=== PATIENT | male | born 1955 | race Caucasian/White ===

== ENCOUNTER → 2023-02-27 09:35 | Outpatient (CLI) | payer MEDICARE, SELFPAY ==
--- NOTE | ~2023-02-27 | CT_ITS ---
CT Scan of the Chest without Contrast: Clinical Indication: Lung cancer screening, personal history of nicotine dependence Technique: Contiguous sections were acquired throughout the chest without intravenous contrast. Dose reduction technique was used on this scan by utilizing automated exposure control and iterative recon struction technique. The dose-length product (DLP) was 248.68 mGy-cm. Findings: There is no evidence of any significant mediastinal, hilar or axillary lymphadenopathy. The mediastin al soft tissues appear normal. There is no evidence of pleural or pericardial effusion. The lungs are clear. No pulmonary nodules or infiltrates are noted. Images through the upper abdomen reveal no abnormalities. Impression: Lung RADS 1: Negative. 12 month follow-up screening CT advised. Reviewed, dictated and finalized at location . Impression: Lung RADS 1: Negative. 12 month follow-up screening CT advised.
--- NOTE | ~2023-02-27 | US_ITS ---
EXAMINATION: US aorta [facility] DATE: 02/27/2023 09:52 INDICATION: Essential hypertension TECHNIQUE: Grayscale, color Doppler, and pulsed Doppler images of the aorta and common iliac arteries were obtained. COMPARISON: None. FINDINGS: The proximal aorta measures 2.1 cm. The mid aorta measures 2.2 cm. The distal aorta measures 1.8 cm. The right common iliac artery measures 1.3 cm. The left common iliac artery measures 1.1 cm. IMPRESSION: 1. Normal caliber abdominal aorta. Reviewed, dictated and finalized at location L.
== END ==
PROVIDERS: PCP Pediatrics; Visit Provider Nurse Practitioner Family
DX: Z12.2 Encounter for screening for malignant neoplasm of respiratory organs (principal); Z87.891 Personal history of nicotine dependence
CPT/HCPCS: 71271; 76706

== ENCOUNTER 2023-03-28 10:34 | Outpatient (CLI) | payer MEDICARE, SELFPAY ==
--- NOTE | ~2023-03-28 | CT_ITS ---
EXAMINATION: CT LE LT wo con DATE: 03/28/2023 11:34 INDICATION: Left knee primary osteoarthritis. TECHNIQUE: Computed tomography (CT) of the left lower limb was performed without intravenous contrast . Automated exposure control and iterative reconstruction technique were employed. The dose-length pr oduct was 2634.84 mGy-cm. COMPARISON: Left knee radiographs 03/20/2023 FINDINGS: Bone alignment is normal. No fracture. There is severe left hip osteoarthritis with a loose body. The knee demonstrates severe osteoarthritis of medial compartment and moderate osteoarthritis of lateral and patellofemoral compartments. There is a moderate-sized knee joint effusion. There is s evere osteoarthritis of proximal tibiofibular joint. There is moderate Achilles tendinopathy. IMPRESSION: 1. Severe left knee osteoarthritis. 2. Moderate-sized left knee joint effusion. 3. Severe left hip osteoarthritis with loose body. 4. Moderate left Achilles tendinopathy. Reviewed, dictated and finalized at location A.
== END 2023-03-28 10:35 | disposition home or self-care (01) ==
PROVIDERS: PCP Pediatrics; Visit Provider Orthopaedic Surgery
DX: M17.12 Unilateral primary osteoarthritis, left knee (principal); M25.462 Effusion, left knee; M16.12 Unilateral primary osteoarthritis, left hip
CPT/HCPCS: 73700

== ENCOUNTER 2023-05-13 10:26 | Outpatient (CLI) | payer MEDICARE, SELFPAY ==
--- NOTE | 2023-05-13 11:11 | ECG_ITS ---
Measurements Intervals [place] Rate: 65 P: 32 UT: 178 QRS: 1 QRSD: 116 T: 25 QT: 388 QTc: 405 Interpretive Statements SINUS RHYTHM INCOMPLETE RIGHT BUNDLE BRANCH BLOCK [90+ ms QRS DURATION, TERMINAL R IN V1/V2, 40+ ms S IN I/aVL/V4/V5/V6] NONSPECIFIC T-WAVE ABNORMALITY COMPARED TO ECG 05/05/2019 14:02:07 T-WAVE ABNORMALITY NOW PRESENT Electronically Signed On 05-13-2023 19:57:07 CDT by Aide Quiroz M.D.
[2023-05-13 11:27] LABS: Hematocrit 51.3 % (42.0-52.0); Hemoglobin 16.5 g/dL (14.0-18.0)
[2023-05-13 11:46] LABS: Albumin Level 4.8 g/dL (3.5-5.1); Estimated Glomerular Filt Rate 47; Glucose 117 mg/dL (65-110)
== END 2023-05-13 10:27 | disposition home or self-care (01) ==
LOC: ANHLAB 10:29
PROVIDERS: PCP Pediatrics; Visit Provider Orthopaedic Surgery
DX: M17.12 Unilateral primary osteoarthritis, left knee (principal); I10 Essential (primary) hypertension; E11.9 Type 2 diabetes mellitus without complications
CPT/HCPCS: 36415; 82040; 82565; 82947; 83036; 85014; 85018; 93005

== ENCOUNTER 2023-07-18 07:48 | Outpatient (CLI) | payer MEDICARE, SELFPAY ==
[2023-07-18 08:57] LABS: Basophils Percent Auto 0.4 % (0.2-1.2); Eosinophils Absolute Auto 0.2 K/mm3 (0-0.3); Eosinophils Percent Auto 2.7 % (0-4.4); Hematocrit 51.7 % (42.0-52.0); Hemoglobin 16.7 g/dL (14.0-18.0); Immature Granulocyte Absolute 0.02 K/mm3 (0.00-0.031); Immature Granulocyte Percent A 0.4 % (0-0.5); Lymphocytes Absolute Auto 1.56 K/mm3 (0.9-3.2); Lymphocytes Percent Auto 28.4 % (18.3-44.2); Mean Corpuscular HGB Conc 32.3 g/dl (32-36); Mean Corpuscular Hemoglobin 28.6 pg (26-34); Mean Corpuscular Volume 88.5 fl (80-100); Mean Platelet Volume 9.5 fl (7.4-10.4); Monocytes Absolute Auto 0.5 K/mm3 (0.1-0.6); Monocytes Percent Auto 8.5 % (2.6-8.5); Neutrophils Absolute Auto 3.3 K/mm3 (1.3-6.7); Neutrophils Percent Auto 59.6 % (45.5-73.1); Platelet Count Result 233 k/mm3 (150-375); Red Blood Count 5.84 M/mm3 (4.6-6.20); White Blood Count 5.5 K/mm3 (4.5-10.0)
[2023-07-18 09:04] LABS: Albumin Level 4.7 g/dL (3.5-5.1)
[2023-07-18 09:09] LABS: Anion Gap 10 mmol/L (8-16); Blood Urea Nitrogen 22 mg/dL (9-20); Calcium 9.7 mg/dL (8.4-10.2); Carbon Dioxide 28 mmol/L (22-30); Chloride 102 mmol/L (98-107); Estimated Glomerular Filt Rate > 60; Glucose 107 mg/dL (65-110); Potassium 5.2 mmol/L (3.4-5.0); Sodium 140 mmol/L (137-145)
[2023-07-18 10:53] LABS: Urine Cotinine NEGATIVE
== END 2023-07-18 07:49 | disposition home or self-care (01) ==
LOC: ANHSURGERY 07:51
PROVIDERS: Anesthesiology; PCP Pediatrics; Visit Provider Orthopaedic Surgery
DX: Z01.818 Encounter for other preprocedural examination (principal); M17.12 Unilateral primary osteoarthritis, left knee; E11.9 Type 2 diabetes mellitus without complications
CPT/HCPCS: 36415; 80048; 80307; 82040; 85025; 87081

== ENCOUNTER 2023-08-05 00:44 | Day surgery (SDC) | payer MEDICARE, SELFPAY ==
[2023-07-18 07:55] VITALS: BMI 36.6
--- NOTE | 2023-07-18 08:20 | PC.NURSE ---
Report to the Outpatient Waiting Room, entrance under the green pavilion located off [facility], at time _0830 on date08/05/23 . Planned Procedure Time: _1030 . Time changes happen often and if your time is changed the preop area will call you the afternoon before. - You and your visitor will be asked to self-screen and do not enter if you have any COVID symptoms. - A mask is optional within the hospital at this time. Patients may have clear liquids (water, carbonated beverages, clear teas, apple juice) until 3 hours prior to surgery ( 7:30 AM)with a maximum of 20 ounces. - No food from midnight until time of surgery - Take the following medications with a SIP of water the morning of surgery: ___NONE DO NOT STOP ANY OF YOUR OTHER PRESCRIPTION MEDICATIONS PRIOR TO SURGERY ?EXCEPT THE FOLLOWING Medications to discontinue per physician ___ALL VITAMINS AND SUPPLEMENTS 3 DAYS PRE OP .LAST DOSE 08/01/23 HOLD ALEVE 7 DAYS PRE OP PER DR AMEZQUITA.LAST DOSE 07/28/23 Please no make-up, nail maldivian, hairspray, perfume, deodorant, or body powder the day of surgery. No jewelry (including any body piercings) or valuables the day of surgery, leave them at home. Please take a shower or bath the night before, or the morning of, surgery with an antibacterial soap. Wear comfortable, loose fitting clothing. Children are encouraged to wear pajamas. - Jewelry must be removed prior to entering the operating room. Rings and piercings that are not removed may be cut off. - The hospital will not accept responsibility for valuables. - Please leave all valuables, including medications, at home the day of surgery. If you are going home after surgery, a licensed refrigerated national truck driver must drive you home. - NO public transportation without another adult if you receive anesthesia. - We recommend that an adult stay with you for 24 hours following discharge. - We also recommend that you do not drive, make important decision, drink alcoholic beverages, or take any drugs that were not prescribed by your health care provider for at least 24 hours after your discharge time. Follow any additional instructions given to you from your surgeon. If you or anyone in your household have experienced Covid symptoms in the past week, please notify your surgeon or the nurse liaison at the phone number below for possible testing. VERBAL AND WRITTEN instructions given to ___PATIENT and asked if any additional questions and then verbalized understanding. Patient advised to call surgeon office or pre surgery nurse liaison [phone] if any additional questions.
[2023-07-18 08:40] VITALS: BP 145/90; PULSE 71; RESP 18; TEMP 36.7; O2SAT 97
--- NOTE | 2023-08-04 15:33 | WPDANESEPPF ---
Anes - Initial Pre Proc Eval Procedure: Operation Date: 08/05/23 10:30 Proposed Procedures p Left Total Knee Arthroplasty - Jimenez Lopez MD Date/Time: 08/04/23 15:33 Surgeon: Jimenez Lopez MD Pre Op Diagnosis: Prim O A Lt Knee Patient Data Age: 68 Gender: M Height: 1.8 m Weight: 119.1 kg Last Vital Signs Temp 36.7 C 07/18/23 08:40 Pulse 71 07/18/23 08:40 Resp 18 07/18/23 08:40 BP 145/90 H 07/18/23 08:40 Pulse Ox 97 07/18/23 08:40 O2 Del Method Room Air 07/18/23 08:40 Allergies Allergy/AdvReac Type Severity Reaction Status Date / Time No Known Allergies Allergy Verified 08/05/23 08:05 Home Medications Medication Instructions Recorded Confirmed Type krill oil 350 mg-om-3 90 mg-dha 24 1 cap PO DAILY 05/05/19 08/05/23 History mg-epa 50 mg-phospholipids capsule metformin 1,000 mg tablet 1,000 mg PO BID 05/05/19 08/05/23 History naproxen 220 mg-diphenhydramine 25 1 tablet PO HS 05/05/19 08/05/23 History mg tablet (Aleve PM) tamsulosin 0.4 mg capsule 0.4 mg PO HS 05/05/19 08/05/23 History lisinopril 40 mg tablet 40 mg PO DAILY 03/20/23 08/05/23 History cholecalciferol (vitamin D3) 125 125 mcg PO DAILY 07/18/23 08/05/23 History mcg (5,000 unit) capsule cyanocobalamin (vitamin B-12) 1,000 mcg PO DAILY 07/18/23 08/05/23 History 1,000 mcg capsule glipizide 5 mg tablet 5 mg PO BID 07/18/23 08/05/23 History pravastatin 20 mg tablet 20 mg PO DAILY 07/18/23 08/05/23 History vitamin A 10,000 unit tablet 10,000 unit PO DAILY DAILY 07/18/23 08/05/23 History Patient hx anesthesia problems: none Family hx anesthesia problems: none Results Review: All pre-operative results and documents have been reviewed as part of the pre-operative evaluation. 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 Family History Family History Mother Congestive heart failure Father Congestive heart failure Diabetes mellitus Mother Breast cancer Father Diabetes mellitus Family history of congestive heart failure Grandparent Diabetes mellitus Family history of congestive heart failure Mother Acute myocardial infarction Family history of malignant neoplasm of breast in first degree relative Family history of congestive heart failure Social History Social History Smoking status: Former smoker Tobacco type: cigars Smoking end date: 07/21/09 Additional smoking assessment comments: SMOKED CIGARS UNTIL 2009 DENIES ANY FORM OF TOBACCO USE Alcohol intake: current Alcohol use details: 2 DRINKS PER MONTH Substance use type: does not use Lack of Transportation: No Lack of Food: Never True Current Housing: I Have Housing Concerned About Future Housing: No Difficulty Paying Gas/Electric Bills: No Difficulty Paying for Meds: No Currently Unemployed: No Education: Master's Degree or Higher Difficulty w/ Childcare or Family Care: No Living arrangements: with family Gender identity (if verbalized by the patient): Male Spiritual care concerns: No Anes - Eval Final PreProcedure Day of Procedure 08/04/23 15:33 Patient weight: obese Heart: regular rate and rhythm Lungs: clear to auscultation Airway: Mallampati scale class III Neurological: alert and oriented Last oral intake: >/= 8 hours ASA classification: III Emergent: no Anesthetic plan: proceed Anesthesia type and monitoring: general LMA and standard monitoring Results Review: All pre-
[2023-08-05] VITALS (16 sets, daily range): BP systolic 132–165; BP diastolic 73–96; PULSE 16–94; RESP 14–20; TEMP 36.3–37.2; O2SAT 91–97
--- NOTE | ~2023-08-05 | XR_ITS ---
EXAMINATION: [id number] DATE: 08/05/2023 13:36 INDICATION: Postoperative evaluation following left total knee arthroplasty. TECHNIQUE: Anteroposterior and lateral views of the left knee were obtained. COMPARISON: None. FINDINGS: Left total knee arthroplasty with patellar resurfacing appears well seated and in near anatomic align ment. No fractures identified. Expected postoperative subcutaneous and intra-articular gas. There is a moderate-sized left knee joint effusion with osseous fragments and/or loose osteochondral bodies i n the suprapatellar recess in the posterior recess of the knee.. IMPRESSION: 1. Left total knee arthroplasty, negative for postoperative purposes. Reviewed, dictated and finalized at location A. L HAND
[2023-08-05] MEDS: ACETAMINOPHEN 500 MG TABLET 1000 MG PO (08:45)
[2023-08-05] MEDS: LACTATED RINGERS 1,000 ML 30 ML IV CONT ×2 (08:45→12:52)
[2023-08-05 08:48] LABS: Glucose Point of Care 115 mg/dl (65-105)
--- NOTE | 2023-08-05 09:47 | WPDHPUPDATE1 ---
History and Physical Update Update Date/Time: 08/05/23 09:47 History and Physical has been reviewed, including an updated exam of the patient. There are NO changes in the patient's condition. Risks, benefits, and alternatives have been discussed and questions answered. Patient agrees to proceed with procedure.
[2023-08-05] MEDS: TRANEXAMIC ACID 1,000MG/ISO100 1,000 MG/100 ML BAG 200 MG IVPB (09:55)
--- NOTE | 2023-08-05 09:59 | WPDANESPNB ---
Anes - Peripheral Nerve Block Date/Time: 08/05/23 09:59 I have discussed with the patient/family/POA the placement of a peripheral nerve block for post-operative pain management, including associated risks, benefits, complications, and side effects. Alternative methods of post-operative analgesia were detailed. Questions were solicited and answers provided to the satisfaction of the patient/family/POA. Time-Out: A pre-procedural Time-Out was completed immediately before starting the procedure and confirmed: Patient Identification, Site, Procedure, Patient Position and the Availability of Requisite Equipment. Clinical Indications: Acute post-operative pain management requested by the operative surgeon. Nerve Block Insertion Note Anes-nerve block: adductor canal left Patient position: supine Skin prep: chlorhexidine Needle: 22 gauge, stimulating, insulated echogenic needle. Needle length: 80 mm Technique: ultrasound Injectate: bupivacaine 0.5% with epi 5 mcg/ml (30cc - no epi) Observations: tolerated well Complications: none Procedure start time:: 948 Procedure end time:: 952
[2023-08-05] MEDS: ceFAZolin 2 GM/D5W 50 ML 2 GM/50 ML BAG IVPB (10:10)
[2023-08-05] MEDS: GENTAMICIN BONE CEMENT REFOBACIN 1 EACH TOPICAL (11:57)
[2023-08-05 13:05] LABS: Glucose Point of Care 173 mg/dl (65-105)
--- NOTE | 2023-08-05 13:26 | W.PM.PROC2 ---
Procedure Note - Detailed Date of Procedure 08/05/23 Pre-op Diagnosis Primary osteoarthritis left knee. Post-op Diagnosis Same Procedure Performed Total knee arthroplasty, left Surgeon Jimenez Lopez MD Anesthesia General and Regional (Subsartorial block.) Findings Excellent bone quality. Patient specific jigs fit very well. Standard resections. Mild medial release. Description of Procedure Preoperative antibiotics were given. The limb was prepped and draped in the usual sterile fashion with a well-padded tourniquet high on the thigh. The limb was exsanguinated and the tourniquet inflated to 300 mmHg. A longitudinal incision was created just medial to the patella. A trivector approach to the knee was performed. Arthrotomy was taken down through the joint capsule. No significant releases were initially taken. The femur was exposed and the F1 jig was applied to osteophytes and bone. The jig was pinned and the distal cut carefully taken. Caliper measurements confirmed appropriate bony resections according to the preoperative templated plan. The F4 cutting jig for the femur was applied, at the standard rotation. The AP and chamfer cuts were taken. The tibia was prepared using the T1 jig, after removing cartilage for the jig contact points. Proper alignment was checked with the alignment marielle. The tibia was cut using the T1 guide. Gap balancing was performed. Gap measurements were taken and the knee was trialed. Excellent alignment and soft tissue balancing was confirmed. The posterior cruciate ligament was recessed along the proximal tibia. The patella was cut for resurfacing. Three lug holes were drilled. Meniscal remnants were removed. The trial components were assembled. Excellent range of motion and proper soft tissue balancing were confirmed throughout the full range of motion. Patellar tracking was excellent. The knee was copiously irrigated periodically throughout the procedure. The real implants were cemented into position. Excess cement was carefully removed. The wound was closed in layers with interrupted #1 Vicryl suture, #2 strata fix suture, 2-0 strata fix suture, 3-0 strata fix suture. Steri-Strips placed on the skin with the knee flexed. Sterile bulky dressing applied. The patient was brought to the recovery room in stable condition. There were no complications. Implants [employer] total knee arthroplasty. Cemented. Cruciate retaining. 13 mm insert. 35 mm trabecular metal oval patella. Estimated Blood Loss 50 Drains No Complications No immediate complications Condition Stable Disposition PACU [facility] Billing Surgery - Charge Forward: Surgery Billing
[2023-08-05] MEDS: SODIUM CHLORIDE 0.9% IV 1,000 ML 125 ML IV CONT (14:58)
--- NOTE | 2023-08-05 15:35 | ADMGEN ---
This patient, Lul Fernandez, was admitted to [facility] Surg Room 315-02. Patient/family oriented to hospital policies and general routines including ID bracelet, bed and alarms, visiting hours, pain management, procedures, bathroom and other care routines, personal items, smoking policy, room service/diet, and visiting hours. Information on how to activate the Rapid Response Team has been discussed. Patient/Family are encouraged to report perceived risks to care and to ask questions if they do not understand what they are told or what they should do. Report received from [facility] PACU, Pt comfortable in the bed at present time.
[2023-08-05] MEDS: oxyCODONE HCL (*CRX) 5 MG TAB IR PO ×2 (15:38→19:08)
--- NOTE | 2023-08-05 16:43 | PM.DS ---
DS: Admitting Diagnosis Discharge Date 08/06/23. Admitting Diagnosis Degenerative arthritis left knee. DS: Discharge Diagnosis Discharge Diagnosis (1) Status post total knee replacement, left: Code(s): Z96.652 - Presence of left artificial knee joint Status: Acute DS: Summary Hospital Course Reason for hospitalization: Total knee arthroplasty. Hospital Course: Tolerated surgery well. Progressed appropriately with therapy. Status at Discharge Functional status at discharge: uses cane/walker Overall status at discharge: patient is progressing back to baseline Time Spent with Patient Time attestation: Total time spent providing and/or coordinating discharge services: Exam Const: General: no acute distress Resp: Effort & Inspection: normal respiratory effort Skin: Other: Wound healing well. Mepilex dressing intact. No hematoma or drainage. Neuro: Motor exam (neuro): 5/5 motor strength present throughout Sensory Exam: normal sensation Psych: Mental Status: mental status grossly normal Speech and movement: Normal speech and movement present DS: Data Data Completed and Pending Labs on day of discharge: Labs from last 24 hours 08/05/23 08/05/23 08/05/23 12:57 08:47 08:26 POC Capillary Glucose 173 H 115 H Blood Type A Positive Antibody Screen Negative Discharge Plan Discharge Patient Disposition: Home, Self-Care Discharge Instructions: See instruction sheet. Stand Alone Forms: General Discharge Instructions Follow-up/Referrals: Jimenez Lopez MD [Physician] - Discharge Medications: New meloxicam 7.5 mg tablet 7.5 mg PO .twice daily Qty: 60 0RF oxycodone-acetaminophen 5-325 mg tablet 1 - 2 tablet PO Q6H MDD 6 tablets PRN (Reason: pain) Qty: 30 0RF prednisone 5 mg tablet 5 mg PO DAILY Qty: 10 0RF Continued lisinopril 40 mg tablet 40 mg PO DAILY tamsulosin 0.4 mg Capsule 0.4 mg PO HS metformin 1,000 mg Tablet 1,000 mg PO BID Aleve PM 220-25 mg Tablet 1 tablet PO HS [id number] mg Capsule 1 cap PO DAILY pravastatin 20 mg tablet 20 mg PO DAILY glipizide 5 mg tablet 5 mg PO BID cyanocobalamin (vitamin B-12) 1,000 mcg Capsule 1,000 mcg PO DAILY cholecalciferol (vitamin D3) 125 mcg (5,000 unit) Capsule 125 mcg PO DAILY vitamin A 10,000 unit Tablet 10,000 unit PO DAILY Quality VTE Prophylaxis VTE prophylaxis: mechanical ordered (TRAVIS wooten and Jim)
[2023-08-05] MEDS: ceFAZolin 1 GM/NS 50 ML 1 GM/50 ML BAG IVPB (17:37)
[2023-08-05] MEDS: glipiZIDE 5 MG TABLET PO (17:39)
[2023-08-05] MEDS: metFORMIN HCL 500 MG TABLET 1000 MG PO (17:39)
[2023-08-05] MEDS: MELOXICAM 7.5 MG TABLET PO (17:39)
[2023-08-05] MEDS: SENNA/DOCUSATE SODIUM TABLET 2 TAB PO (17:40)
[2023-08-05] MEDS: ASPIRIN 81 MG ENTERIC TABLET PO (17:40)
[2023-08-05 20:25] LABS: Glucose Point of Care 189 mg/dl (65-105)
[2023-08-05] MEDS: FAMOTIDINE 20 MG TABLET PO (21:11)
[2023-08-05] MEDS: TAMSULOSIN HCL 0.4 MG CAPSULE PO (21:11)
[2023-08-05] MEDS: oxyCODONE HCL (*CRX) 5 MG TAB IR 10 MG PO (23:18)
[2023-08-06] MEDS: ceFAZolin 1 GM/NS 50 ML 1 GM/50 ML BAG IVPB ×2 (02:33→09:02)
[2023-08-06 03:04] VITALS: BP 158/76; PULSE 73; RESP 18; TEMP 36.1; O2SAT 100
[2023-08-06] MEDS: oxyCODONE HCL (*CRX) 5 MG TAB IR 10 MG PO ×2 (03:25→08:16)
[2023-08-06] MEDS: CYCLOBENZAPRINE HCL 10 MG TABLET PO (03:25)
[2023-08-06 06:12] LABS: Basophils Percent Auto 0.3 % (0.2-1.2); Eosinophils Percent Auto 0.3 % (0-4.4); Hematocrit 42.3 % (42.0-52.0); Hemoglobin 13.1 g/dL (14.0-18.0); Immature Granulocyte Absolute 0.02 K/mm3 (0.00-0.031); Immature Granulocyte Percent A 0.3 % (0-0.5); Lymphocytes Absolute Auto 0.97 K/mm3 (0.9-3.2); Lymphocytes Percent Auto 13.3 % (18.3-44.2); Mean Corpuscular Hemoglobin 28.4 pg (26-34); Mean Corpuscular Volume 91.6 fl (80-100); Mean Platelet Volume 9.5 fl (7.4-10.4); Monocytes Absolute Auto 0.8 K/mm3 (0.1-0.6); Monocytes Percent Auto 11.2 % (2.6-8.5); Neutrophils Absolute Auto 5.5 K/mm3 (1.3-6.7); Neutrophils Percent Auto 74.6 % (45.5-73.1); Platelet Count Result 188 k/mm3 (150-375); Red Blood Count 4.62 M/mm3 (4.6-6.20); Red Cell Distribution Width 14.1 % (11.5-14.5); White Blood Count 7.3 K/mm3 (4.5-10.0)
[2023-08-06 06:24] LABS: Anion Gap 7 mmol/L (8-16); Blood Urea Nitrogen 15 mg/dL (9-20); Calcium 8.5 mg/dL (8.4-10.2); Carbon Dioxide 27 mmol/L (22-30); Chloride 99 mmol/L (98-107); Estimated CRCL calculation 76 ml/min; Estimated Glomerular Filt Rate > 60; Glucose 140 mg/dL (65-110); Potassium 4.5 mmol/L (3.4-5.0); Sodium 133 mmol/L (137-145)
--- NOTE | 2023-08-06 08:07 | P.PNAN_ITS ---
Anes - Prog Note Post-Op Date/Time: 08/06/23 08:07 Cardiovascular status: normal Respiratory status: normal Airway patency: baseline Mental status: baseline Post-Op hydration status: normal Vital Signs: Last Vital Signs Temp 36.1 C L 08/06/23 03:04 Pulse 73 08/06/23 03:04 Resp 18 08/06/23 03:04 BP 158/76 H 08/06/23 03:04 Pulse Ox 100 08/06/23 03:04 O2 Del Method Room Air 08/05/23 17:16 O2 Flow Rate 2 08/05/23 14:25 Pain Score (VAS): 10/28 I/O: Intake & Output 08/05/23 08/06/23 08/06/23 23:59 07:59 15:59 Intake Total 1025 350 Output Total 1600 1250 Balance -575 -900 Laboratory Tests 08/06/23 06:02 08/06/23 06:02 08/05/23 08/05/23 08/05/23 08:26 08:47 12:57 WBC RBC Hgb Hct MCV MCH MCHC RDW Plt Count MPV Immature Gran % (Auto) Neut % (Auto) Lymph % (Auto) [place] % (Auto) Eos % (Auto) Baso % (Auto) Lymph # (Auto) [place] # (Auto) Eos # (Auto) Baso # (Auto) Abs Immat Gran (auto) Absolute Neuts (auto) Absolute Nucleated RBC Nucleated RBC % Sodium Potassium Chloride Carbon Dioxide Anion Gap BUN Creatinine Estim Creat Clear Calc Estimated GFR Glucose POC Capillary Glucose 115 H 173 H Calcium Blood Type A Positive Antibody Screen Negative 08/05/23 08/06/23 20:00 06:02 WBC 7.3 RBC 4.62 Hgb 13.1 L D Hct 42.3 MCV 91.6 MCH 28.4 MCHC 31.0 L RDW 14.1 Plt Count 188 MPV 9.5 Immature Gran % (Auto) 0.3 Neut % (Auto) 74.6 H Lymph % (Auto) 13.3 L [place] % (Auto) 11.2 H Eos % (Auto) 0.3 Baso % (Auto) 0.3 Lymph # (Auto) 0.97 [place] # (Auto) 0.8 H Eos # (Auto) 0.0 Baso # (Auto) 0.0 Abs Immat Gran (auto) 0.02 Absolute Neuts (auto) 5.5 Absolute Nucleated RBC 0.0 Nucleated RBC % 0.0 Sodium 133 L Potassium 4.5 Chloride 99 Carbon Dioxide 27 Anion Gap 7 L BUN 15 D Creatinine 1.10 Estim Creat Clear Calc 76 Estimated GFR > 60 Glucose 140 H POC Capillary Glucose 189 H Calcium 8.5 Blood Type Antibody Screen Post-procedural complaints: none Patient Feedback: Patient satisfied with anesthetic care.
[2023-08-06] MEDS: metFORMIN HCL 500 MG TABLET 1000 MG PO (09:01)
[2023-08-06] MEDS: predniSONE 5 MG TABLET PO (09:01)
[2023-08-06] MEDS: CHOLECALCIFEROL 1,000 UNITS TABLET 5000 UNITS PO (09:01)
[2023-08-06] MEDS: lisinopriL 20 MG TABLET 40 MG PO (09:01)
[2023-08-06] MEDS: PRAVASTATIN SODIUM 20 MG TABLET PO (09:01)
[2023-08-06] MEDS: FAMOTIDINE 20 MG TABLET PO (09:01)
[2023-08-06] MEDS: SENNA/DOCUSATE SODIUM TABLET 2 TAB PO (09:02)
[2023-08-06] MEDS: ASPIRIN 81 MG ENTERIC TABLET PO (09:02)
[2023-08-06] MEDS: glipiZIDE 5 MG TABLET PO (09:02)
[2023-08-06] MEDS: MELOXICAM 7.5 MG TABLET PO (09:02)
[2023-08-06] MEDS: CYANOCOBALAMIN 1,000 MCG TABLET 1000 MCG PO (09:02)
[2023-08-06] MEDS: polyethylene glycoL 3350 17 GM POWD.PACK PO (09:08)
== END 2023-08-06 10:50 | disposition home or self-care (01) ==
LOC: ANHSURGERY 07:49 → ANH3MEDSUR 14:16
PROVIDERS: PCP Pediatrics; Visit Provider Orthopaedic Surgery
PROC: (CPT 27447; principal; 2023-08-05 10:30)
DX: M17.12 Unilateral primary osteoarthritis, left knee (principal); G89.18 Other acute postprocedural pain; E11.9 Type 2 diabetes mellitus without complications; I10 Essential (primary) hypertension
CPT/HCPCS: 64447; 27447; 36415; 73560; 80048; 82948; 85025; 86850; 86900; 86901; 97110; 97161; 97165; 97530; 97535; A9270; C1713; C1776; J0171; J0690; J1100; J1170; J1885; J2250; J2270; J2405; J2704; J2795; J3010; J7030; J7120; J7512

== ENCOUNTER 2023-08-25 09:37 | Outpatient (CLI) | payer MEDICARE, SELFPAY ==
--- NOTE | ~2023-08-25 | XR_ITS ---
XR knee LT min 4V DATE: 08/25/2023 09:53 INDICATION: Orthopedic aftercare TECHNIQUE: 4 views COMPARISON: 03/28/2023 CT left lower extremity 03/20/2023 left knee FINDINGS: Moderate suprapatellar knee joint effusion. Prepatellar and infrapatellar soft tissue swell ing. Status post left total knee arthroplasty with patellar resurfacing. No fracture or dislocation, periosteal reaction or bone destruction is detected. IMPRESSION: Moderate suprapatellar knee joint effusion Status post left total knee arthroplasty Prepatellar and infrapatellar soft tissue swelling. Reviewed, dictated and finalized at location B. ATTENDANT
== END 2023-08-25 09:38 | disposition home or self-care (01) ==
LOC: ANHIMG 09:40
PROVIDERS: PCP Pediatrics; Visit Provider Orthopaedic Surgery
DX: Z47.89 Encounter for other orthopedic aftercare (principal); M25.462 Effusion, left knee; M79.89 Other specified soft tissue disorders
CPT/HCPCS: 73564

== ENCOUNTER 2023-09-22 09:41 | Outpatient (CLI) | payer MEDICARE, SELFPAY ==
--- NOTE | ~2023-09-22 | XR_ITS ---
EXAMINATION: XR knee LT 3V DATE: 09/22/2023 09:57 INDICATION: Presence of left artificial knee joint. TECHNIQUE: 3 views of left knee including standing views were obtained. COMPARISON: Left knee radiographs 08/25/2023 FINDINGS: There is a total left knee arthroplasty with patellar resurfacing in near-anatomic alignmen t. No fracture. No periprosthetic lucency to suggest loosening or infection. Again seen is heterotopi c ossification in the area of medial collateral ligament. There is a moderate-sized knee joint effusi on. IMPRESSION: 1. Total left knee arthroplasty in near-anatomic alignment. 2. Moderate-sized left knee joint effusion. Reviewed, dictated and finalized at location E. WAY ENGINEER
== END 2023-09-22 09:42 | disposition home or self-care (01) ==
PROVIDERS: PCP Pediatrics; Visit Provider Physician Assistant Surgical
DX: Z96.652 Presence of left artificial knee joint (principal); M25.462 Effusion, left knee
CPT/HCPCS: 73562